=== PATIENT | female | born 2000 | race Caucasian/White ===

== ENCOUNTER 2023-03-31 16:00 | Outpatient (RCR) | payer OTHER, SELFPAY ==
--- NOTE | 2023-03-05 11:52 | HP.OTEVAL_ITS ---
Patient's Visit Information VALERI BREWER is a 22 year old F, referred to Occupational Therapy by Chandan Huizar PA-C, with a diagnosis of left LF proximal phalanx fx. Date of Evaluation: 03/05/23 Occupational Therapist: Kiki Medina, SONIA/Jesús, CHT - Subjective This 22 year old female was seen for OT eval with dx of left LF proximal phalanx displaced fx. DOI 01/12/23 pt states she fell while running on wet grass. pt is right handed. Pt was 2.5 weeks in splint and mireya taped- fx shifted found on February 14 shift of fx and last Friday new x rays showed good bone growth. pt unemployed. Student. pt states she would like to return to using left hand with ADls and IADls at IND. level. - Pain left LF 0 Pain Intensity Range: 0, 3 - ROM MP: right LF 0/95, left LF 0/60 PIP: right LF 0/95 left -35/55 DIP: right LF 0/75 left LF 0/25 ROM Comments: pt demo with limited left LF ROM - Strength Bsa/Aml Compliance Officer: right 40# left NT Lateral Pinch: right 10# left NT Tripod Pinch: right 8# left NT Strength Comments: test strength in 1 week from initial eval - Sensation Sensation Comments: denies - Quick DASH-Disab of Arm,Shoulder& Hand Quick DASH Score: 38.3325 - Goals Goal:ROM equal to unaffected hand: Yes Goal:Bsa/Aml Compliance Officer/Pinch strength at least 75% of unaffected hand: Yes Goal:No pain with affected hand use: Yes Goal:Full use of affected hand in daily activities including: Yes - Rehabilitation General Assessment: pt demo with healing fx limited ROM and strength limiting pts IND with ADLs and IADLS. Pt would benefit from skilled OT services 2-3 x week for 6 weeks to return pt to her PLOF. Today therapist ed. pt on tendon g lides, reverse blocking and PROM for composite flexion and PIP ext. Pt may need night splint if she does not make gains with PIP ext. Pt demo understanding and agreed to POC. Rehabilitation Potential: Good - Anticipated Interventions A/AAROM/PROM, Strengthening, Modalities, Orthoses, Joint Protection/Energy Conservation, Ergonomic Education, Education re assistive Equipment, Education re Diagnosis, Home Program - Visit Plan Frequency: 2-3x /Week Duration: 6 Weeks TEXT: Thank you for the opportunity to evaluate your patient. For Medicare and Medicare HMO plans, please review the plan of care and approve it. It will need to be FAXED BACK to us at [phone] for Medicare purposes. Please let me know if there are questions or concerns regarding this plan of care. Physician Signature: Date:
--- NOTE | 2023-03-31 16:18 | HP.OTDCSUM_ITS ---
Discharge Summary D/C Summary: It has been my pleasure to treat VALERI Puentes FRIEND under orders from Chandan Huizar PA-C, for the diagnosis of left LF proximal phalanx fx for a total of 11 visit(s). Please see the following information for a summary of their discharge status. Overall Improvement % Improvement: 90 Objective Objective/Function: left LF MCP 0/90 left LF PIP -15/ left LF DIP 0/40 left oracle erp architect 30# pt reports she is IND with all ADLS and IADLs- pt states she has no difficulty at this time. Goals Patient Goals: Regain Mobility, Regain Strength, Decrease Pain, Use Hand/Wrist/Arm Normally Again and Be More Independent in ADLS Goal:ROM equal to unaffected hand: Yes Goal:Tobacco Cloth Reclaimer/Pinch strength at least 75% of unaffected hand: Yes Goal:No pain with affected hand use: Yes Goal:Full use of affected hand in daily activities including work: Yes Plan Plan: d/c D/C Information Discharge Comments: pt was seen for 11 OT sessions following left finger fx. pt has met OT goals and is d/c at this time. pt agree to cont. with PRE as she feels. d/c sentence: If there are questions or concerns regarding this patient's occupational t herapy, please fell free to call me at [phone]. Thank you for the referral of this patient. Sincerely, Kiki Medina, OTR/L, CHT
== END 2023-03-31 19:00 | disposition home or self-care (01) ==
LOC: OT 16:00
PROVIDERS: Referring Provider Physician Assistant Surgical; Visit Provider Physician Assistant Surgical
DX: S62.617D Displaced fracture of proximal phalanx of left little finger, subsequent encounter for fracture with routine healing (principal)
CPT/HCPCS: 97110; 97140; 97166; 97530